=== PATIENT | male | born 1950 | race African-American/Black ===

== ENCOUNTER 2023-05-13 15:01 | Inpatient (IN) ==
[2023-05-13 15:47] LABS: Albumin 3.7 g/dL (3.2-5.2); Albumin/Globulin Ratio 1.5 (1-3); Calcium 9.2 mg/dL (8.6-10.3); Creatinine, Serum 0.86 mg/dL (0.67-1.17); Globulin 2.4 g/dL (2-4); Magnesium 1.9 mg/dL (1.9-2.7); Potassium 4.5 mmol/L (3.5-5.0); Total Bilirubin 0.4 mg/dL (0.2-1.0); Total Protein 6.1 g/dL (6.4-8.9); eGFR CKD-EPI 91.4 (>60)
[2023-05-13 16:00] LABS: ABS Basophils 0.1 10^3/uL (0.0-0.1); ABS Eosinophils 0.7 10^3/uL (0.0-0.5); ABS Lymphocytes 1.8 10^3/uL (1.0-4.8); ABS Monocytes 0.5 10^3/uL (0.0-1.1); ABS Neutrophils 6.3 10^3/uL (1.5-7.6); ABS Nucleated RBC 0.03 10^3/ul; Eosinophil % 7.2 %; Hematocrit 30.1 % (38-53); Hemoglobin 10.3 g/dL (13.2-16.3); Lymphocyte % 19.2 %; Mean Corpuscular Hemoglobin 32.2 pg (27-33); Mean Corpuscular Hgb Conc 34.3 g/dL (31-36); Mean Corpuscular Volume 94.1 fL (80-97); Mean Platelet Volume 10.9 fL (7.5-11.2); Nucleated Red Blood Cells % 0.3 /100 WBC (0.0-0.4); Platelet Count 6 10^3/uL (150-450); Red Cell Distribution Width 14.1 % (12-17); White Blood Count 9.4 10^3/uL (3.6-10.2)
[2023-05-13] MEDS ORDERED: Iodixanol (CONTRAST) 320 MG/ML 100 ML SDV IV ONE (16:54)
[2023-05-13 17:01] LABS: High Sensitivity Troponin 1 Hr 5 pg/mL (<20)
[2023-05-13] MEDS ORDERED: Dexamethasone IV 4 MG/ML VIAL 1 ml VIAL IV SLOW PU ONE (18:25)
[2023-05-13] MEDS ORDERED: Dexamethasone IV 4 MG/ML 5 ML VIAL (20 MG) IVPB ONE (18:39)
[2023-05-13] MEDS ORDERED: Lactated Ringers 1000 ml BAG 1,000 ML IV ONE (18:44)
[2023-05-13] MEDS ORDERED: PRIVIGEN IV ONE (19:07)
[2023-05-13] MEDS ORDERED: IMMUNE GLOB IV ONE ×2 (19:07→21:00)
[2023-05-13] MEDS ORDERED: [UNRECOGNIZED DRUG - OTHER] IV ONE (19:07)
[2023-05-13] MEDS ORDERED: Acetaminophen IV 1 GM/100ML 1,000 MG/100 ML BAG IV ONE (19:10)
[2023-05-13] MEDS ORDERED: Dextrose 50% Syringe 50 ml 25 GM/50 ML SYRINGE IV PUSH PRN (20:22)
[2023-05-13] MEDS ORDERED: [UNRECOGNIZED DRUG - OTHER] IV ONE (21:00)
[2023-05-13 21:43] LABS: HDL Cholesterol 31.4 mg/dL
[2023-05-13 23:28] LABS: Ferritin 107.4 ng/mL (24-336)
[2023-05-14 03:47] LABS: Mean Platelet Volume 9.8 fL (7.5-11.2); Platelet Count 44 10^3/uL (150-450)
[2023-05-14 05:22] LABS: Calcium 8.4 mg/dL (8.6-10.3); Creatinine, Serum 0.82 mg/dL (0.67-1.17); Magnesium 1.8 mg/dL (1.9-2.7); Potassium 3.9 mmol/L (3.5-5.0); eGFR CKD-EPI 92.8 (>60)
[2023-05-14 05:31] LABS: ABS Lymphocytes 0.5 10^3/uL (1.0-4.8); ABS Monocytes 0.1 10^3/uL (0.0-1.1); ABS Neutrophils 6.3 10^3/uL (1.5-7.6); ABS Nucleated RBC 0.02 10^3/ul; Eosinophil % 0.2 %; Hematocrit 20.9 % (38-53); Hemoglobin 7.6 g/dL (13.2-16.3); Lymphocyte % 6.6 %; Mean Corpuscular Hemoglobin 32.9 pg (27-33); Mean Corpuscular Hgb Conc 36.3 g/dL (31-36); Mean Corpuscular Volume 90.7 fL (80-97); Mean Platelet Volume 9.2 fL (7.5-11.2); Nucleated Red Blood Cells % 0.2 /100 WBC (0.0-0.4); Platelet Count 47 10^3/uL (150-450); Red Blood Count 2.31 10^6/uL (4.06-5.63); Red Cell Distribution Width 14.1 % (12-17); White Blood Count 6.9 10^3/uL (3.6-10.2)
[2023-05-14] MEDS ORDERED: Magnesium Sulfate 2 gm BAG 2 GM/50 ML BAG IVPB ONE ×2 (05:42)
[2023-05-14] MEDS ORDERED: Iron Sucrose 200 MG in NS 0.9% 100 ml BAG 100 ML IVPB SCH (09:00)
[2023-05-14] MEDS: Iron Sucrose 200 MG in NS 0.9% 100 ml BAG 100 ML IVPB SCH (14:24)
[2023-05-15 08:03] LABS: ABS Eosinophils 0.1 10^3/uL (0.0-0.5); ABS Lymphocytes 1.3 10^3/uL (1.0-4.8); ABS Monocytes 0.5 10^3/uL (0.0-1.1); ABS Neutrophils 7.6 10^3/uL (1.5-7.6); ABS Nucleated RBC 0.01 10^3/ul; Calcium 8.4 mg/dL (8.6-10.3); Creatinine, Serum 0.87 mg/dL (0.67-1.17); Eosinophil % 0.8 %; Hematocrit 21.8 % (38-53); Hemoglobin 7.6 g/dL (13.2-16.3); Mean Corpuscular Volume 94.3 fL (80-97); Mean Platelet Volume 9.7 fL (7.5-11.2); Nucleated Red Blood Cells % 0.1 /100 WBC (0.0-0.4); Platelet Count 87 10^3/uL (150-450); Potassium 3.9 mmol/L (3.5-5.0); Red Blood Count 2.31 10^6/uL (4.06-5.63); Red Cell Distribution Width 14.5 % (12-17); White Blood Count 9.6 10^3/uL (3.6-10.2); eGFR CKD-EPI 91.1 (>60)
[2023-05-15 17:43] LABS: Glucose Confirmatory 424 mg/dL (70-100)
[2023-05-16 05:58] LABS: ABS Lymphocytes 0.6 10^3/uL (1.0-4.8); ABS Monocytes 0.3 10^3/uL (0.0-1.1); ABS Neutrophils 7.7 10^3/uL (1.5-7.6); ABS Nucleated RBC 0.01 10^3/ul; Hematocrit 23.5 % (38-53); Hemoglobin 8.2 g/dL (13.2-16.3); Lymphocyte % 7.4 %; Mean Corpuscular Hemoglobin 33.2 pg (27-33); Mean Corpuscular Volume 94.9 fL (80-97); Mean Platelet Volume 9.6 fL (7.5-11.2); Nucleated Red Blood Cells % 0.2 /100 WBC (0.0-0.4); Platelet Count 86 10^3/uL (150-450); Red Blood Count 2.47 10^6/uL (4.06-5.63); Red Cell Distribution Width 14.7 % (12-17); White Blood Count 8.7 10^3/uL (3.6-10.2)
[2023-05-16 06:54] LABS: Calcium 8.1 mg/dL (8.6-10.3); Magnesium 2.1 mg/dL (1.9-2.7); Potassium 4.4 mmol/L (3.5-5.0)
[2023-05-16 07:00] LABS: Creatinine, Serum 0.91 mg/dL (0.67-1.17)
[2023-05-16] MEDS: Iron Sucrose 200 MG in NS 0.9% 100 ml BAG 100 ML IVPB SCH (08:46)
[2023-05-16 14:23] VITALS: BP 124/87
== END 2023-05-16 15:45 | disposition home or self-care (01) | DRG 661 ==
LOC: ED 15:01 → INTOOBSV 18:56 → OBSVTOIN 18:56 → SUATTDRO 18:56 → EDHOLD 18:56 → SSU 05-14 08:09 → SUATTDRO 05-14 08:11 → SSU 05-14 08:13
PROVIDERS: ADMIT Internal Medicine; ATTEND Internal Medicine

== ENCOUNTER 2023-05-31 00:43 | Inpatient (IN) ==
[2023-05-31 01:43] LABS: Albumin 3.9 g/dL (3.2-5.2); Albumin/Globulin Ratio 1.2 (1-3); Calcium 9.1 mg/dL (8.6-10.3); Creatinine, Serum 0.92 mg/dL (0.67-1.17); Globulin 3.2 g/dL (2-4); Magnesium 1.8 mg/dL (1.9-2.7); Potassium 3.9 mmol/L (3.5-5.0); Total Bilirubin 0.4 mg/dL (0.2-1.0); Total Protein 7.1 g/dL (6.4-8.9); eGFR CKD-EPI 87.8 (>60)
[2023-05-31 01:58] LABS: INR 0.96 (0.83-1.13)
[2023-05-31 02:05] LABS: ABS Basophils 0.1 10^3/uL (0.0-0.1); ABS Eosinophils 0.3 10^3/uL (0.0-0.5); ABS Lymphocytes 1.7 10^3/uL (1.0-4.8); ABS Monocytes 0.5 10^3/uL (0.0-1.1); ABS Neutrophils 5.1 10^3/uL (1.5-7.6); ABS Nucleated RBC 0.01 10^3/ul; Hematocrit 33.8 % (38-53); Hemoglobin 11.8 g/dL (13.2-16.3); Lymphocyte % 22.5 %; Mean Corpuscular Hgb Conc 34.7 g/dL (31-36); Mean Platelet Volume 11.3 fL (7.5-11.2); Nucleated Red Blood Cells % 0.1 /100 WBC (0.0-0.4); Platelet Count 4 10^3/uL (150-450); Red Blood Count 3.56 10^6/uL (4.06-5.63); Red Cell Distribution Width 15.6 % (12-17); White Blood Count 7.7 10^3/uL (3.6-10.2)
[2023-05-31] MEDS ORDERED: Immune Globulin IV Order (CPOE ENTRY PROTOCOL) IV SCH (04:00)
[2023-05-31] MEDS ORDERED: [UNRECOGNIZED DRUG - OTHER] IV ONE (04:00)
[2023-05-31] MEDS ORDERED: IMMUNE GLOB IV ONE (04:00)
[2023-05-31] MEDS ORDERED: Ondansetron 4 mg VIAL 2 MG/ML 2 ml VIAL IV PRN (04:09)
[2023-05-31] MEDS ORDERED: Magnesium Sulfate IV 1GM/100ML 1 GM/100 ML BAG IV ONE (04:12)
[2023-05-31] MEDS ORDERED: Dextrose 50% Syringe 50 ml 25 GM/50 ML SYRINGE IV PUSH PRN (04:26)
[2023-05-31] MEDS ORDERED: Calcium Carb (TUMS) 500 mg CHEW TAB PO ONE (07:51)
[2023-05-31] MEDS ORDERED: ROMIPLOSTIM SUBCUT ONE (09:40)
[2023-05-31] MEDS ORDERED: romiPLOStim 250 MCG/0.5 ML VIAL SUBCUT ONE (10:30)
[2023-05-31] MEDS: Insulin GLARGINE 100 un/ml 10 ml VIAL SUBCUT SCH (20:59)
[2023-06-01 06:16] LABS: ABS Eosinophils 0.2 10^3/uL (0.0-0.5); ABS Lymphocytes 0.9 10^3/uL (1.0-4.8); ABS Monocytes 0.2 10^3/uL (0.0-1.1); ABS Neutrophils 2.9 10^3/uL (1.5-7.6); Eosinophil % 5.2 %; Hematocrit 30.1 % (38-53); Hemoglobin 10.5 g/dL (13.2-16.3); Lymphocyte % 20.7 %; Mean Corpuscular Hemoglobin 32.9 pg (27-33); Mean Corpuscular Hgb Conc 34.8 g/dL (31-36); Mean Corpuscular Volume 94.6 fL (80-97); Mean Platelet Volume 9.3 fL (7.5-11.2); Nucleated Red Blood Cells % 0.1 /100 WBC (0.0-0.4); Platelet Count 13 10^3/uL (150-450); Red Blood Count 3.18 10^6/uL (4.06-5.63); Red Cell Distribution Width 15.6 % (12-17); White Blood Count 4.3 10^3/uL (3.6-10.2)
[2023-06-01] MEDS ORDERED: Calcium Carb (TUMS) 500 mg CHEW TAB PO PRN (07:15)
[2023-06-01] MEDS ORDERED: Immune Globulin IV Order (CPOE ENTRY PROTOCOL) IV SCH (11:00)
[2023-06-01] MEDS ORDERED: [UNRECOGNIZED DRUG - OTHER] IV ONE (11:00)
[2023-06-01] MEDS ORDERED: IMMUNE GLOB IV ONE (11:00)
[2023-06-01] MEDS: Insulin GLARGINE 100 un/ml 10 ml VIAL SUBCUT SCH (21:13)
[2023-06-02 06:25] LABS: Calcium 8.4 mg/dL (8.6-10.3); Creatinine, Serum 0.8 mg/dL (0.67-1.17); Magnesium 1.7 mg/dL (1.9-2.7); Potassium 3.7 mmol/L (3.5-5.0); eGFR CKD-EPI 93.4 (>60)
[2023-06-02 06:26] LABS: ABS Eosinophils 0.2 10^3/uL (0.0-0.5); ABS Monocytes 0.4 10^3/uL (0.0-1.1); ABS Neutrophils 2.4 10^3/uL (1.5-7.6); Eosinophil % 5.7 %; Hematocrit 28.6 % (38-53); Mean Corpuscular Hemoglobin 32.9 pg (27-33); Mean Corpuscular Volume 94.1 fL (80-97); Mean Platelet Volume 9.7 fL (7.5-11.2); Nucleated Red Blood Cells % 0.1 /100 WBC (0.0-0.4); Platelet Count 34 10^3/uL (150-450); Red Blood Count 3.04 10^6/uL (4.06-5.63); Red Cell Distribution Width 15.8 % (12-17)
[2023-06-02] MEDS ORDERED: Magnesium Sulfate IV 3 GM in NS 0.9% 100 ml BAG 100 ML IVPB ONE (08:29)
[2023-06-02 10:26] VITALS: BP 167/82
== END 2023-06-02 13:18 | disposition home or self-care (01) | DRG 661 ==
LOC: ED 00:43 → EDHOLD 00:43 → SUATTDRO 04:09 → MED 14:09
PROVIDERS: ADMIT Student in an Organized Health Care Education/Training Program; ATTEND Internal Medicine